=== PATIENT | female | born 1950 | race Caucasian/White ===

== ENCOUNTER 2020-09-13 21:57 | Emergency (ER) | payer MEDICARE ==
[~2020-09-13] VITALS: Ht 167.6 cm; Wt 71.7 kg
[2020-09-13] MEDS ORDERED: ATOR40TA PO (22:03)
[2020-09-13] MEDS ORDERED: ASPIR 8181 M1 PO (22:03)
[2020-09-13] MEDS ORDERED: MERIBIN5 MG PO (22:04)
[2020-09-13] MEDS ORDERED: HYDROCODONE-AC1 EA10 PO (23:19)
== END 2020-09-13 23:40 | disposition home or self-care (01) ==
LOC: ER 21:57
DX: S42.292A Other displaced fracture of upper end of left humerus, initial encounter for closed fracture (principal); Z79.82 Long term (current) use of aspirin; Z79.899 Other long term (current) drug therapy; W01.0XXA Fall on same level from slipping, tripping and stumbling without subsequent striking against object, initial encounter; Y92.481 Parking lot as the place of occurrence of the external cause
CPT/HCPCS: 29105; 73030; 73060; 99283-25; A9270